=== PATIENT | female | born 1960 | race Caucasian/White ===

== ENCOUNTER 2017-11-02 07:15 | Emergency (ER) | payer BC ==
--- NOTE | 2017-11-02 08:12 | UC ---
Lower Extremity/Ankle HPI - HPI Summary HPI Summary: 57 y/o obese female PMHX HTN presents to the urgent care c/o RT foot pain, swelling and redness since 10/31/2017. Pt reports she woke up with the pain. Pain is localized on the 2nd and 3rd metacarpal on dorsal side, it is 8/ 10 w/o any radiation. Pt has taken ibuprofen 400mg PO yesterday to alleviate symptoms. Pt denies fever, injury, numbness and tingling over the toes, SOB, chest pain, abdominal pain, N/V/D, Hx of smoking, no Hx of gout, or RA. 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 - History of Current Complaint Chief Complaint: UCSkin Stated Complaint: TOE PAIN Time Seen by Provider: 11/02/17 08:07 Hx Obtained From: Patient Hx Last Menstrual Period: menopausal Onset/Duration: Sudden Onset, Lasting Days - 2 days, Still Present Severity Initially: Mild Severity Currently: Moderate Pain Intensity: 8 - when walking Pain Scale Used: 0-10 Numeric Aggravating Factor(s): Ambulation Alleviating Factor(s): Rest, OTC Meds Able to Bear Weight: Yes - Risk Factors Gout Risk Factors: Negative DVT Risk Factors: Negative Septic Arthritis Risk Factor: Negative - Allergies/Home Medications Allergies/Adverse Reactions: Allergies Allergy/AdvReac Type Severity Reaction Status Date / Time Penicillins Allergy Intermediate Dizziness Verified 11/02/17 07:25 PMH/Surg Hx/FS Hx/Imm Hx Previously Healthy: Yes Cardiovascular History: Hypertension - Surgical History Surgical History: Yes Surgery Procedure, Year, and Place: ruptured appendix 1978,abcess removed after this surgery, infertitlity surgery, 2 c sections, 2 d&c's, hysterectomy - Family History Known Family History: Positive: Hypertension - Social History Occupation: Employed Full-time Lives: With Family Alcohol Use: None Substance Use Type: None Smoking Status (MU): Never Smoked Tobacco Review of Systems Constitutional: Negative Skin: Negative Eyes: Negative ENT: Negative Respiratory: Negative Cardiovascular: Negative Gastrointestinal: Negative Genitourinary: Negative Motor: Negative Neurovascular: Negative Musculoskeletal: Other: - RT foot pain with swelling and redness Neurological: Negative Psychological: Negative Is Patient Immunocompromised?: No All Other Systems Reviewed And Are Negative: Yes Physical Exam Triage Information Reviewed: Yes Vital Signs: Initial Vital Signs Temp 98.6 F 11/02/17 07:27 Pulse 69 11/02/17 07:27 Resp 16 11/02/17 07:27 BP 126/69 11/02/17 07:27 Pulse Ox 96 11/02/17 07:27 - Additional Comments Vital Signs Reviewed: Yes General : well developed, well nourished obese female w/o any apparent distress Eyes: Positive: Conjunctiva Clear - PERRLA, EOMI ENT: Positive: Normal ENT inspection, Hearing grossly normal, Pharynx normal, TMs normal Neck: Positive: Supple, Nontender, No Lymphadenopathy Respiratory: Positive: Chest non-tender, Lungs clear, Normal breath sounds, No respiratory distress Cardiovascular: Positive: RRR, No Murmur, Pulses Normal Abdomen Description: Positive: Nontender, No Organomegaly, Soft. Negative: CVA Tenderness (R), CVA Tenderness (L) Bowel Sounds: Positive: Present Musculoskeletal: Positive: Strength Intact, Pt is able to bear weight but ambulate with mild limping. RT foot :No surface trauma, positive swelling with mild erythema at dorsal side base of the 2nd and 3rd Rt metacarpals. and point tenderness on palpation . Decrease ROM of the 2nd and 3rd toes, No bony deformity when compared with LF foot. Nobony step-off, No tenderness to palpation over toes, no tenderness of hind foot, Decrease plantar/dorsiflexion, inversion/eversion due to pain. Distal motor and neurovascular status are intact. Neurological Exam: Normal Psychological Exam: Normal Skin Exam: Normal Lower Extremity Course/Dx - Course Course Of Treatment: 57 y/o obese female PMHX HTN presents to the urgent care c/ o RT foot pain, swelling and redness since 10/31/2017. Pt reports she woke up with the pain. Pain is localized on the 2nd and 3rd metacarpal on dorsal side, it is is 8/10 w/o any radiation. Pt has taken ibuprofen 400mg PO yesterday to alleviate symptoms. Pt denies fever, injury, numbness and tingling over the toes, SOB, chest pain, abdominal pain, N/V/D, Hx of smoking, no Hx of gout, or RA. 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 Hx obtained. Pt with positive swelling with mild erythema the dorsal base of the 2nd and 3rd Rt metacarpals. with point tenderness. FROM of the toes and joints. 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 Also Small spur at the achilles insertion. I spoke to Dr Tena and she recommended to call Orthopedic [employer]. I spoke to Orhtopedic Dr Monet in regards to Pt's findings. He recommeded to immobilized Pt with a boot and Rx NSAIDs and f/u with hin Saturday11/04/2017. Pt's RT foot immobilized with the boot and Rx Naproxen PO, educated on avascular Necrosis , all questions answered to Pt's satisfaction. Pt understood and agreed w/ D/C instructions, left the clinic ambulating. - Differential Dx/Diagnosis Differential Diagnosis/HQI/PQRI: Arthritis, Cellulitis, Contusion, Fracture ( Closed), Gout, Infection, Phlebitis, Sprain, Strain, Tendonitis Provider Diagnoses: 1- Acute RT foot pain. 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 3-spurs - Physician Notifications Discussed Patient Care With: Kash Monet - DR monet recomeded immobilization of RT foot with a CAM boot and Rx w/ NSAIDs. Time Discussed With Above Provider: 02:00 Instructed by Provider To: Have Pt Call For Appt. - on Saturday11/04/2017 Discharge - Discharge Plan Condition: Stable Disposition: HOME Prescriptions: Naproxen [Naproxen 500 mg] 500 mg PO Q8H PRN #30 tab PRN Reason: Pain Referrals: [facility] [[facility]] - 2 Days Kash Monet MD [Medical Doctor] - 1 Day Additional Instructions: 1-Please take medications as directed after meals to alleviate pain and swelling. 2-Please apply ice, keep your foot immobilized with the boot. Avoid strenuous exercise or standing for long periods of time 3- Please f/u with as soon as possible with Orthopedic Dr Monet for further evaluation and treatment. Please call him he will be seeing you Saturday 4- If you develop fever, severe pain with swelling please go immediately to the ER for further management You have been Dx with Avascular necrosis of the 3rd metatarsal head, commonly known as Friebergs infarction, is a painful condition. It can occur when there is an interruption of the blood supply to a toe. When this happens the tissue dies and the bone collapses. Left untreated, it can lead to destruction of the toes joint surface. Please see immediately the Orthopedic .
--- NOTE | 2017-11-02 09:15 | RAD ---
Indication: Dorsal pain at the RIGHT second and third metacarpals/toes. Redness and swelling. No preceding injury. Comparison: No relevant prior exams available on the [facility] for comparison. Technique: AP, lateral, and oblique views RIGHT foot. Report: Normal articular alignment. Small plantar fascia origin and Achilles tendon insertion bone spurs. There is partial collapse with subchondral sclerosis and cystic change at the head of the third metatarsal. Mild subchondral sclerosis at the heads of the first and second metatarsals. At the first metatarsal the sclerosis is likely a component of osteoarthritis with mild osteophytosis. Mild nonfocal soft tissue swelling. 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 While etiology is uncertain it may be due to previous single episode trauma or repetitive microtrauma.
[2017-11-02 09:18] VITALS: BP 131/66
== END 2017-11-02 10:03 | disposition home or self-care (01) ==
LOC: UCEAST 07:15
DX: M87.874 Other osteonecrosis, right foot (principal); M77.51 Other enthesopathy of right foot and ankle; Z88.0 Allergy status to penicillin; I10 Essential (primary) hypertension
CPT/HCPCS: 99203; G0463

== ENCOUNTER 2019-11-03 07:07 | Emergency (ER) | payer BC ==
[2019-11-03 07:25] VITALS: BP 118/66
--- NOTE | 2019-11-03 07:37 | UC ---
UC General HPI - HPI Summary HPI Summary: RN notes - pt had a flu shot around [facility]. pt states a week later, she came down with cold symptoms and a cough. pt states it now feels like something is stuck in the middle of her chest. pt states she coughs so much it makes her light headed. cough is worse at night. No fever / chills. No GI upset, but decreased appetite. No h/a, ear pain, eye pain. No rash. Works in school system. - History of Current Complaint Chief Complaint: UCRespiratory Stated Complaint: COUGH Time Seen by Provider: 11/03/19 07:16 Hx Obtained From: Patient Hx Last Menstrual Period: menopausal Pain Intensity: 1 - Allergy/Home Medications Allergies/Adverse Reactions: Allergies Allergy/AdvReac Type Severity Reaction Status Date / Time Penicillins Allergy Dizziness Verified 11/03/19 07:26 PMH/Surg Hx/FS Hx/Imm Hx Previously Healthy: Yes Cardiovascular History: Hypertension - Surgical History Surgical History: Yes Surgery Procedure, Year, and Place: ruptured appendix 1978,abcess removed after this surgery, infertitlity surgery, 2 c sections, 2 d&c's, hysterectomy - Family History Known Family History: Positive: Hypertension - Social History Alcohol Use: None Substance Use Type: None Smoking Status (MU): Never Smoked Tobacco Review of Systems All Other Systems Reviewed And Are Negative: Yes Constitutional: Positive: Fatigue Skin: Positive: Negative - see hpi Eyes: Positive: Negative ENT: Positive: Other - see hpi Respiratory: Positive: Other - see hpi Cardiovascular: Positive: Negative Gastrointestinal: Positive: Other - see hpi Genitourinary: Positive: Negative Motor: Positive: Negative Neurovascular: Positive: Negative Musculoskeletal: Positive: Negative Neurological: Positive: Negative Psychological: Positive: Negative Is Patient Immunocompromised?: No Physical Exam Triage Information Reviewed: Yes Appearance: Well-Appearing, Well-Nourished Vital Signs: Initial Vital Signs Temp 98.5 F 11/03/19 07:20 Pulse 77 11/03/19 07:20 Resp 18 11/03/19 07:20 BP 118/66 11/03/19 07:20 Pulse Ox 96 11/03/19 07:20 Vital Signs Reviewed: Yes Eye Exam: Normal ENT: Positive: Pharyngeal erythema - mild post redness, no sores / exudates uvula midline, Nasal congestion, Other - EAC bilat + cerumen, but not fully impacted, TM's as visible macdonald not red Neck exam: Normal Neck: Positive: Supple, Nontender, No Lymphadenopathy Respiratory Exam: Other - BS equal + ronchorus cough Mild exp wheeze at base occsional. No distress Respiratory: Positive: No respiratory distress, No accessory muscle use Cardiovascular Exam: Normal Cardiovascular: Positive: RRR, No Murmur, Pulses Normal, Brisk Capillary Refill Abdominal Exam: Normal Abdomen Description: Positive: Nontender Musculoskeletal Exam: Normal Musculoskeletal: Positive: Strength Intact Neurological Exam: Normal - grossly normal Psychological Exam: Normal - conversing easily and appropriately nad Skin Exam: Normal - nondiaphoretic no visible or reported rash Course/Dx - Course Course Of Treatment: Reviewed coa / tx plan. Questions as posed answered to the best of my ability. Encourage f/u pcp next week if possible re resp recheck. Medical attention sooner if worse or new problems. See avs. Declines work note. Declines cxr. Declines eduardo ac rx. Consider prednisone, but only if sx do not impove. - Diagnoses Provider Diagnosis: Bronchitis, Bronchospasm Discharge ED - Sign-Out/Discharge Documenting (check all that apply): Patient Departure All imaging exams completed and their final reports reviewed: No Studies - Discharge Plan Condition: Stable Disposition: HOME Prescriptions: Albuterol HFA INHALER* [Ventolin HFA Inhaler*] 1 - 2 puff INH Q4H PRN #1 mdi PRN Reason: Cough Azithromycin TAB* [Zithromax TAB (Z-FIDE) 250 mg #6 tabs] 2 tab PO .TODAY, THEN 1 DAILY #1 fide Benzonatate CAP* [Tessalon 100 MG CAP*] 100 mg PO TID PRN #30 cap PRN Reason: Cough Patient Education Materials: Acute Bronchitis (ED), Bronchospasm (ED) Referrals: Cecilia Burdick MD [Medical Doctor] - Additional Instructions: Hydrate. Schedule a follow up appointment with your primary care physician, for next week if possible. Seek medical attention for worse or new problems in the meantime. Eat yogurt and / or probiotic every daily for the next 10 days (for the duration of the antibiotic). - Billing Disposition and Condition Condition: STABLE Disposition: Home
[2019-11-03] MEDS ORDERED: Albuterol HFA INHALER* 8 gm MDI INH ONE ×2 (07:42)
--- NOTE | 2019-11-03 10:14 | UC ---
- Progress Note Progress Note: addendum - system error re scripts - rx's resent Course/Dx - Diagnoses Provider Diagnoses: Bronchitis, Bronchospasm Discharge ED - Sign-Out/Discharge Documenting (check all that apply): Post-Discharge Follow Up All imaging exams completed and their final reports reviewed: No Studies - Discharge Plan Condition: Stable Disposition: HOME Prescriptions: Albuterol HFA INHALER* [Ventolin HFA Inhaler*] 1 - 2 puff INH Q4H PRN #1 mdi PRN Reason: Wheezing Azithromycin TAB* [Zithromax TAB (Z-FIDE) 250 mg #6 tabs] 2 tab PO .TODAY, THEN 1 DAILY #1 fide Benzonatate CAP* [Tessalon 100 MG CAP*] 100 mg PO TID PRN #30 cap PRN Reason: Cough Patient Education Materials: Acute Bronchitis (ED), Bronchospasm (ED) Referrals: Cecilia Burdick MD [Medical Doctor] - Additional Instructions: Hydrate. Schedule a follow up appointment with your primary care physician, for next week if possible. Seek medical attention for worse or new problems in the meantime. Eat yogurt and / or probiotic every daily for the next 10 days (for the duration of the antibiotic). - Billing Disposition and Condition Condition: STABLE Disposition: Home
== END 2019-11-03 07:55 | disposition home or self-care (01) ==
LOC: UCEAST 07:07
DX: J40 Bronchitis, not specified as acute or chronic (principal); J98.01 Acute bronchospasm; I10 Essential (primary) hypertension; Z88.0 Allergy status to penicillin
CPT/HCPCS: 99212; A9270-GY; G0463

== ENCOUNTER 2022-06-13 09:35 | Observation (INO) ==
[2022-06-13] MEDS ORDERED: Ondansetron 4 mg VIAL 2 MG/ML 2 ml VIAL IV ONE (10:01)
[2022-06-13] MEDS ORDERED: Lactated Ringers 1000 ml BAG 1,000 ML IV ONE ×2 (10:01→11:46)
[2022-06-13 10:12] LABS: ABS Basophils 0.1 10^3/ul (0-0.2); ABS Neutrophils 6.1 10^3/ul (1.5-7.7); Eosinophil % 0.4 %; Hematocrit 45 % (35-47); Hemoglobin 15.1 g/dL (12.0-16.0); Lymphocyte % 21.5 %; Mean Corpuscular HGB Conc 34 g/dL (31-36); Mean Corpuscular Hemoglobin 32 pg (27-31); Mean Corpuscular Volume 94 fL (80-97); Mean Platelet Volume 6.9 fL (7.4-10.4); Nucleated Red Blood Cells % 0.1; Platelet Count 420 10^3/uL (150-450); Red Blood Count 4.76 10^6 /uL (3.70-4.87); Red Cell Distribution Width 13 % (10-15); White Blood Count 9.2 10^3/uL (3.5-10.8)
[2022-06-13 10:19] LABS: INR 1.05 (0.89-1.11)
[2022-06-13] MEDS ORDERED: Acetaminophen IV 1 GM/100ML 100 ML IV ONE (10:25)
[2022-06-13 10:56] LABS: ALT 20 U/L (7-52); AST 13 U/L (13-39); Albumin/Globulin Ratio 1.4 (1-3); Alkaline Phosphatase 72 U/L (35-149); Anion Gap 10 mmol/L (2-11); Blood Urea Nitrogen 52 mg/dL (6-24); C Reactive Protein < 1.00 mg/L (<8.01); CO2 Carbon Dioxide 22 mmol/L (22-32); Calcium 9.9 mg/dL (8.6-10.3); Chloride 101 mmol/L (101-111); Globulin 2.9 g/dL (2-4); Glucose 141 mg/dL (70-100); Magnesium 1.6 mg/dL (1.9-2.7); Potassium 4.3 mmol/L (3.5-5.0); Sodium 133 mmol/L (135-145); Total Protein 6.9 g/dL (6.4-8.9); eGFR CKD-EPI 19.7 (>60)
[2022-06-13] MEDS ORDERED: Magnesium Sulfate 2 gm BAG 2 GM/50 ML BAG IVPB ONE (11:25)
[2022-06-13] MEDS ORDERED: Ondansetron 4 mg VIAL 2 MG/ML 2 ml VIAL IV PRN (15:10)
[2022-06-13] MEDS: NS 0.9% 1000 ml BAG 1,000 ML IV SCH (20:21)
[2022-06-13 20:54] LABS: Urine Appearance Clear; Urine Bilirubin Negative (Negative); Urine Blood Negative (Negative); Urine Color Yellow; Urine Glucose Negative (Negative); Urine Ketones Negative (Negative); Urine Nitrite Negative (Negative); Urine Protein Negative (Negative); Urine Specific Gravity 1.025 (1.005-1.030); Urine Urobilinogen 0.2 (Negative) (Negative); Urine pH 5.5 (5.0-9.0)
[2022-06-13] MEDS: Heparin 5000 UNITS/ML 1 mL VIAL SUBCUT SCH (23:45)
[2022-06-14 02:41] LABS: Renal Sodium Excretion 0.53 %; Urine Creatinine Concentration 167.41 mg/dL
[2022-06-14 03:50] LABS: Creatinine, Serum 2.77 mg/dL (0.51-0.95)
[2022-06-14] MEDS: Heparin 5000 UNITS/ML 1 mL VIAL SUBCUT SCH ×2 (06:02→13:20)
[2022-06-14 06:13] LABS: ABS Eosinophils 0.1 10^3/ul (0-0.6); ABS Monocytes 0.8 10^3/ul (0-0.8); ABS Neutrophils 4.9 10^3/ul (1.5-7.7); Eosinophil % 0.7 %; Hematocrit 39 % (35-47); Hemoglobin 13.1 g/dL (12.0-16.0); Lymphocyte % 25.2 %; Mean Corpuscular HGB Conc 34 g/dL (31-36); Mean Corpuscular Hemoglobin 32 pg (27-31); Mean Corpuscular Volume 95 fL (80-97); Mean Platelet Volume 7.1 fL (7.4-10.4); Platelet Count 336 10^3/uL (150-450); Red Blood Count 4.05 10^6 /uL (3.70-4.87); Red Cell Distribution Width 13 % (10-15); White Blood Count 7.7 10^3/uL (3.5-10.8)
[2022-06-14 06:32] LABS: C Reactive Protein 1.1 mg/L (<8.01); eGFR CKD-EPI 35.7 (>60)
[2022-06-14] MEDS: NS 0.9% 1000 ml BAG 1,000 ML IV SCH (09:01)
[2022-06-14 11:40] VITALS: BP 147/74
== END 2022-06-14 16:10 | disposition home or self-care (01) ==
LOC: ED 09:35 → EDHOLD 09:35 → SUATTDRO 15:10 → MED 19:10
PROVIDERS: ADMIT Internal Medicine; ATTEND Internal Medicine

== ENCOUNTER 2022-09-16 11:14 | Inpatient (IN) ==
[2022-09-16] MEDS ORDERED: Ondansetron 4 mg VIAL 2 MG/ML 2 ml VIAL IV ONE (12:04)
[2022-09-16] MEDS ORDERED: NS 0.9% 1000 ml BAG 1,000 ML IV ONE ×3 (12:05→14:48)
[2022-09-16 12:32] LABS: Hematocrit 43 % (35-47); Hemoglobin 14.9 g/dL (12.0-16.0); Mean Corpuscular HGB Conc 35 g/dL (31-36); Mean Corpuscular Hemoglobin 33 pg (27-31); Mean Corpuscular Volume 95 fL (80-97); Mean Platelet Volume 7.5 fL (7.4-10.4); Platelet Count 366 10^3/uL (150-450); Red Blood Count 4.56 10^6 /uL (3.70-4.87); Red Cell Distribution Width 14 % (10-15); White Blood Count 10.5 10^3/uL (3.5-10.8)
[2022-09-16 13:13] LABS: ABS Basophils 0.1 10^3/ul (0-0.2); ABS Eosinophils 0.1 10^3/ul (0-0.6); ABS Lymphocytes 2.1 10^3/ul (1.0-4.8); ABS Monocytes 0.9 10^3/ul (0-0.8); ABS Neutrophils 7.4 10^3/ul (1.5-7.7); Eosinophil % 0.6 %; Lymphocyte % 19.8 %; Nucleated Red Blood Cells % 0.1
[2022-09-16 13:23] LABS: ALT 15 U/L (7-52); Albumin 4.1 g/dL (3.2-5.2); Albumin/Globulin Ratio 1.4 (1-3); Alkaline Phosphatase 75 U/L (35-149); Blood Urea Nitrogen 72 mg/dL (6-24); C Reactive Protein 2.64 mg/L (<8.01); CO2 Carbon Dioxide 21 mmol/L (22-32); Calcium 9.8 mg/dL (8.6-10.3); Chloride 94 mmol/L (101-111); Globulin 2.9 g/dL (2-4); Glucose 143 mg/dL (70-100); Lipase 47 U/L (11.0-82.0); Sodium 130 mmol/L (135-145)
[2022-09-16] MEDS ORDERED: Al Hydrox/Mg Hydrox/Simet LIQ 30 ML UDC PO ONE (13:45)
[2022-09-16] MEDS ORDERED: Famotidine IV 10 MG/ML 2 ml VIAL (20 mg) IV SLOW PU ONE (13:46)
[2022-09-16 14:32] LABS: Anion Gap 15 mmol/L (2-11)
[2022-09-16 15:21] LABS: Magnesium 1.6 mg/dL (1.9-2.7); Potassium Redraw 4.5 mmol/L (3.5-5.0)
[2022-09-16] MEDS ORDERED: Magnesium Sulfate 2 gm BAG 2 GM/50 ML BAG IVPB ONE (15:23)
[2022-09-16] MEDS ORDERED: Calcium Carb (TUMS) 500 mg CHEW TAB PO PRN (16:53)
[2022-09-16 16:59] LABS: Urine Appearance Turbid; Urine Bilirubin Negative (Negative); Urine Blood Negative (Negative); Urine Color Amber; Urine Glucose Negative (Negative); Urine Ketones Negative (Negative); Urine Nitrite Negative (Negative); Urine Protein 1+(30 mg/dL) (Negative); Urine Specific Gravity 1.016 (1.002-1.030); Urine Urobilinogen Negative (Negative)
[2022-09-16] MEDS ORDERED: Lactated Ringers 1000 ml BAG 1,000 ML IV SCH (17:00)
[2022-09-16] MEDS: NS 0.9% 1000 ml BAG 1,000 ML IV SCH (17:24)
[2022-09-16 17:53] LABS: Folate 10.68 ng/mL (5.90-24.80)
[2022-09-16 20:03] LABS: Urine Bacteria 3+ (Absent); Urine Red Blood Cell Trace(0-2/hpf) (Absent); Urine Squamous Epithelial Cell Present (Absent); Urine Transitional Epithelial Present (Absent); Urine White Blood Cell Trace(0-5/hpf) (Absent)
[2022-09-16] MEDS: Heparin 5000 UNITS/ML 1 mL VIAL SUBCUT SCH (22:03)
[2022-09-17] MEDS: NS 0.9% 1000 ml BAG 1,000 ML IV SCH ×2 (00:58→07:48)
[2022-09-17 06:42] LABS: ABS Lymphocytes 2.7 10^3/ul (1.0-4.8); ABS Monocytes 0.7 10^3/ul (0-0.8); ABS Neutrophils 5.5 10^3/ul (1.5-7.7); Eosinophil % 0.4 %; Hematocrit 36 % (35-47); Hemoglobin 11.9 g/dL (12.0-16.0); Lymphocyte % 29.9 %; Mean Corpuscular HGB Conc 33 g/dL (31-36); Mean Corpuscular Hemoglobin 32 pg (27-31); Mean Corpuscular Volume 97 fL (80-97); Mean Platelet Volume 7.5 fL (7.4-10.4); Platelet Count 272 10^3/uL (150-450); Red Blood Count 3.73 10^6 /uL (3.70-4.87); Red Cell Distribution Width 13 % (10-15)
[2022-09-17 07:03] LABS: Calcium 8.6 mg/dL (8.6-10.3); Magnesium 2.2 mg/dL (1.9-2.7); Potassium 4.3 mmol/L (3.5-5.0)
[2022-09-17] MEDS: Heparin 5000 UNITS/ML 1 mL VIAL SUBCUT SCH ×2 (08:53→21:01)
[2022-09-17] MEDS ORDERED: Lactated Ringers 1000 ml BAG 1,000 ML IV SCH (09:00)
[2022-09-17] MEDS ORDERED: Cyanocobalamin INJ 1,000 MCG/ML VIAL 1 ML VIAL IM ONE (09:50)
[2022-09-18 04:18] LABS: UR Microalbumin (mg/L) < 15.0 mg/L; Urine Sodium Concentration 56 mmol/L
[2022-09-18 06:53] LABS: Calcium 8.9 mg/dL (8.6-10.3); Magnesium 2.2 mg/dL (1.9-2.7); Potassium 4.4 mmol/L (3.5-5.0); eGFR CKD-EPI 26.3 (>60)
[2022-09-18] MEDS: Heparin 5000 UNITS/ML 1 mL VIAL SUBCUT SCH (08:49)
[2022-09-18 09:38] LABS: Urine Osmo 371 mOsm/kg (150-1150)
[2022-09-18 11:43] VITALS: BP 146/36
== END 2022-09-18 16:00 | disposition home or self-care (01) | DRG 469 ==
LOC: ED 11:14 → EDHOLD 16:19 → SUATTDRO 16:19 → SSU 18:29
PROVIDERS: ADMIT Student in an Organized Health Care Education/Training Program; ATTEND Internal Medicine

== ENCOUNTER 2023-06-16 08:00 | Inpatient (IN) ==
[2023-06-16] MEDS ORDERED: Ondansetron 4 mg VIAL 2 MG/ML 2 ml VIAL IV ONE (08:32)
[2023-06-16] MEDS: Lactated Ringers 1000 ml BAG 1,000 ML IV SCH ×3 (08:35→17:40)
[2023-06-16 08:43] LABS: ABS Basophils 0.1 10^3/uL (0.0-0.1); ABS Eosinophils 0.1 10^3/uL (0.0-0.5); ABS Lymphocytes 2.2 10^3/uL (1.0-4.8); ABS Monocytes 0.7 10^3/uL (0.0-0.9); ABS Neutrophils 10.2 10^3/uL (1.5-7.6); ABS Nucleated RBC 0.01 10^3/ul; Eosinophil % 0.4 %; Hematocrit 46.1 % (35-45); Hemoglobin 15.8 g/dL (11.5-14.3); Lymphocyte % 16.9 %; Mean Corpuscular Hemoglobin 31.2 pg (27-33); Mean Corpuscular Hgb Conc 34.4 g/dL (31-36); Mean Corpuscular Volume 90.7 fL (80-97); Mean Platelet Volume 7.4 fL (7.5-11.2); Nucleated Red Blood Cells % 0.1 /100 WBC (0.0-0.4); Platelet Count 455 10^3/uL (150-450); Red Blood Count 5.08 10^6/uL (3.63-4.92); White Blood Count 13.3 10^3/uL (3.8-11.8)
[2023-06-16 08:59] LABS: Albumin 4.1 g/dL (3.2-5.2); Albumin/Globulin Ratio 1.2 (1-3); C Reactive Protein 19.86 mg/L (<8.01); Creatinine, Serum 3.84 mg/dL (0.51-0.95); Globulin 3.3 g/dL (2-4); Magnesium 1.8 mg/dL (1.9-2.7); Total Bilirubin 0.5 mg/dL (0.2-1.0); Total Protein 7.4 g/dL (6.4-8.9); eGFR CKD-EPI 12.5 (>60)
[2023-06-16] MEDS ORDERED: Lactated Ringers 1000 ml BAG 1,000 ML IV ONE ×3 (09:30→12:12)
[2023-06-16 09:48] LABS: Potassium 4.3 mmol/L (3.5-5.0)
[2023-06-16] MEDS ORDERED: Lactated Ringers 1000 ml BAG 1,000 ML IV SCH (10:55)
[2023-06-16] MEDS ORDERED: Ondansetron 4 mg VIAL 2 MG/ML 2 ml VIAL IV PRN (13:19)
[2023-06-16] MEDS ORDERED: Prochlorperazine 5 mg/ml 2 ml VIAL (10 mg) IV PRN (13:20)
[2023-06-16] MEDS: Enoxaparin 30 MG/0.3 ML SYR SUBCUT SCH (15:23)
[2023-06-16 20:45] LABS: Urine Appearance Cloudy; Urine Bilirubin Negative (Negative); Urine Blood Negative (Negative); Urine Color Yellow; Urine Glucose Negative (Negative); Urine Ketones Negative (Negative); Urine Nitrite Negative (Negative); Urine Protein Negative (Negative); Urine Specific Gravity 1.015 (1.002-1.030); Urine Urobilinogen Negative (Negative)
[2023-06-17] MEDS: Lactated Ringers 1000 ml BAG 1,000 ML IV SCH (00:36)
[2023-06-17 06:22] LABS: ABS Basophils 0.1 10^3/uL (0.0-0.1); ABS Eosinophils 0.1 10^3/uL (0.0-0.5); ABS Lymphocytes 2.1 10^3/uL (1.0-4.8); ABS Monocytes 0.9 10^3/uL (0.0-0.9); ABS Neutrophils 6.5 10^3/uL (1.5-7.6); ABS Nucleated RBC 0.01 10^3/ul; Hematocrit 33.7 % (35-45); Hemoglobin 11.6 g/dL (11.5-14.3); Mean Corpuscular Hemoglobin 30.9 pg (27-33); Mean Corpuscular Hgb Conc 34.5 g/dL (31-36); Mean Corpuscular Volume 89.6 fL (80-97); Mean Platelet Volume 7.1 fL (7.5-11.2); Nucleated Red Blood Cells % 0.1 /100 WBC (0.0-0.4); Platelet Count 269 10^3/uL (150-450); Red Blood Count 3.77 10^6/uL (3.63-4.92); Red Cell Distribution Width 14.7 % (12-17); White Blood Count 9.7 10^3/uL (3.8-11.8)
[2023-06-17 06:39] LABS: Calcium 8.2 mg/dL (8.6-10.3); Creatinine, Serum 1.89 mg/dL (0.51-0.95); Magnesium 1.3 mg/dL (1.9-2.7); Potassium 3.8 mmol/L (3.5-5.0); eGFR CKD-EPI 29.3 (>60)
[2023-06-17] MEDS ORDERED: Magnesium Sulfate 2 gm BAG 2 GM/50 ML BAG IVPB ONE ×2 (07:45→12:22)
[2023-06-17] MEDS: Enoxaparin 30 MG/0.3 ML SYR SUBCUT SCH (13:07)
[2023-06-18 06:48] LABS: ABS Basophils 0.1 10^3/uL (0.0-0.1); ABS Eosinophils 0.2 10^3/uL (0.0-0.5); ABS Monocytes 0.7 10^3/uL (0.0-0.9); ABS Neutrophils 4.5 10^3/uL (1.5-7.6); Eosinophil % 2.2 %; Hematocrit 35.6 % (35-45); Hemoglobin 12.1 g/dL (11.5-14.3); Mean Corpuscular Hgb Conc 34.1 g/dL (31-36); Mean Platelet Volume 6.9 fL (7.5-11.2); Nucleated Red Blood Cells % 0.1 /100 WBC (0.0-0.4); Platelet Count 269 10^3/uL (150-450); Red Blood Count 3.91 10^6/uL (3.63-4.92); Red Cell Distribution Width 14.9 % (12-17); White Blood Count 7.4 10^3/uL (3.8-11.8)
[2023-06-18 07:03] LABS: Calcium 8.9 mg/dL (8.6-10.3); Creatinine, Serum 1.23 mg/dL (0.51-0.95); Magnesium 2.1 mg/dL (1.9-2.7); Potassium 4.1 mmol/L (3.5-5.0); eGFR CKD-EPI 49.1 (>60)
[2023-06-18 10:00] VITALS: BP 106/70
== END 2023-06-18 10:30 | disposition home or self-care (01) | DRG 469 ==
LOC: ED 08:00 → SUATTDRO 13:19 → EDHOLD 13:19 → MED 15:43
PROVIDERS: ADMIT Student in an Organized Health Care Education/Training Program; ATTEND Internal Medicine